=== PATIENT | male | born 1975 | race Caucasian/White ===

== ENCOUNTER 2023-01-07 15:43 | Emergency (ER) | payer OTHER, BC ==
[~2023-01-07] VITALS: Ht 160 cm; Wt 79.3 kg
[2023-01-07] MEDS ORDERED: SYNTHROID100 MCG PO (16:01)
[2023-01-07] MEDS ORDERED: CELECOXIB50 MG PO (16:01)
[2023-01-07] MEDS ORDERED: METHYLPREDNISOLO4 M1 PO (16:04)
[2023-01-07] MEDS ORDERED: CYCLOBENZAPRINE10 MG PO (16:04)
[2023-01-07 16:14] VITALS: BP 132/91
== END 2023-01-07 16:15 | disposition home or self-care (01) ==
LOC: ED 15:43
DX: M62.830 Muscle spasm of back (principal); M47.816 Spondylosis without myelopathy or radiculopathy, lumbar region
CPT/HCPCS: J1100; J1885

== ENCOUNTER 2023-04-15 07:55 | Day surgery (SDC) | payer OTHER ==
[2023-04-14 13:20] VITALS: BP 116/76
[~2023-04-15] VITALS: Ht 160 cm; Wt 77.3 kg
--- NOTE | ~2023-04-15 | OR ---
[facility] [address], [place] [address] Draft DATE OF OPERATION: 04/15/2023 SURGEON: Austen Pizarro MD PREOPERATIVE DIAGNOSIS: Nasal obstruction due to septal deformity and inferior turbinate hypertrophy. POSTOPERATIVE DIAGNOSIS: Nasal obstruction due to septal deformity and inferior turbinate hypertrophy. PROCEDURE: Septoplasty, cautery bilateral inferior turbinate and submucosal. ANESTHESIA: General LMA, EVELIA Saavedra. PREOPERATIVE HISTORY: Angelica is a 47-year-old male with nasal obstruction, difficulty with CPAP, unresponsive to appropriate medications. Exam in the office had shown a significant septal deformity and inferior turbinate hypertrophy. He was taken to the operating room for the above mentioned procedures. OPERATIVE PROCEDURE AND FINDINGS: After informed consent, the patient was taken to the operating room, placed in supine position where general LMA anesthesia was induced. The patient and procedure were verified. The patient received preoperative intranasal oxymetazoline and intravenous Ancef. Headlight speculum exam of the nasal cavity showed good decongestion of the inferior turbinates, septal deformity obstructive on the right side, a large spur and shelf extending posteriorly, 1% lidocaine with epinephrine was injected in the septal mucosa, right side. All deviated septal bone and cartilage was then removed with the Monet. The septum was medialized with the nasal speculum and the airway was markedly improved. The inferior turbinates were then cauterized with a long handle needle point cautery starting on the left side. Multiple transmucosal passes on the medial and inferior surface of the inferior turbinate extending anteriorly all the way back posteriorly. Excellent shrinkage of the inferior turbinate was obtained in this manner. Same procedure on the right inferior turbinate. Hemostasis was verified. PACU was then placed, one piece of Merocel each side trimmed, coated with Neosporin tied anteriorly over a pad. The pharynx was suctioned clear of blood and secretions. The patient was PATIENT NAME: ANGELICA GOEMZ OPERATIVE REPORT DATE OF : 79 REPORT #: [id number] PHYSICIAN: AUSTEN PIZARRO MD PCP: TERESA NUGENT REPORT IS CONFIDENTIAL AND NOT TO BE RELEASED WITHOUT AUTHORIZATION [facility] [address], [place] [address] Draft then awakened, extubated, transported to recovery room in good condition. COMPLICATIONS: None. BLOOD LOSS: Minimal. SPECIMEN: None. DRAINS: None. PACKING: One piece of Merocel in each nostril. Austen Pizarro MD GC/MODL /[id number] Copies: ~ PATIENT NAME: ANGELICA GOMEZ OPERATIVE REPORT DATE OF : 79 REPORT #: [id number] PHYSICIAN: AUSTEN PIZARRO MD PCP: TERESA NUGENT REPORT IS CONFIDENTIAL AND NOT TO BE RELEASED WITHOUT AUTHORIZATION
[~2023-04-15 07:55] MED LIST: CELECOXIB50 MG PO; CYCLOBENZAPRINE10 MG PO; EYE ITCH RELIEF5 ML; FLONASE ALLERG9.9 ML; METHYLPREDNISOLO4 M1 PO; OSTERA TABLET1 EACH PO; REFRESH CLASSI1 EACH OPTH; SYNTHROID100 MCG PO; TERIFLUNOMIDE PO
[2023-04-15 08:06] VITALS: BP 119/79
[2023-04-15] MEDS ORDERED: TERBUTALINE SULF5 MG PO (08:13)
[2023-04-15] MEDS ORDERED: TERBINAFINE HC250 MG PO (08:14)
--- NOTE | 2023-04-15 11:19 | NUR ---
04/15/23 Mikaela Steen OXYGEN SATURATION REMAINS 100% ON 6L VIA MASK. OXYGEN IS REMOVED. PATIENT ASKS "CAN I HAVE SOME WATER?" PATIENT IS GIVEN AN ICE CHIP.
[2023-04-15 11:54] VITALS: BP 110/71
--- NOTE | 2023-04-15 12:11 | NUR ---
LE 1150-PATIENT BACK TO ROOM FROM PACU ON RA. RECEIVED REPORT FROM NORIS. PATIENT IS DROWSY. RESP EVEN AND UNLABORED. RATES PAIN 5/10 AND THIS IS TOLERABLE. DENIES NAUSEA. SUCTION TURNED ON FOR PATIENT TO USE WHEN COUGHING. PROVIDED PATIENT WITH WATER AND APPLESAUCE. DRIP PAD CLEAN, DRY, AND INTACT. AT BEDSIDE. CALL LIGHT WITHIN REACH.
[2023-04-15 13:16] VITALS: BP 106/63
--- NOTE | 2023-04-15 13:30 | NUR ---
IN PT ROOM FOR ASSESSMENT AND VS. PT IS RESTING W/EYES CLOSED, EASILY AWAKENS TO VERBAL STIMULI. PT REPORTS PAIN HAS DECREASED FROM 7/10 TO 5/10 AND STATES THIS IS TOLERABLE AT THIS TIME A MILD "ACHE". NO EVIDENT NEW SHADOWING OR BLEEDING ON DRIP PAD. PT TOLERATING ICE WATER AND PUDDING W/OUT ANY DIFFICULTY SWALLOWING. PT REPORTS NO DESIRE TO URINE VOID AT THIS TIME. PT ENCOURAGED TO INTAKE ORAL FLUIDS, PT STATES VERBAL UNDERSTANDING. CALL LIGHT WITHIN REACH, NO FURTHER NEEDS AT THIS TIME.
--- NOTE | 2023-04-15 14:10 | NUR ---
ANSWERED PT CALL LIGHT D/T REPORT OF NEEDING TO VOID. PT STANDS AT BEDSIDE AND REPORTS NO DIZZINESS OR NAUSEA. STANDBY ASSIST W/PT TO BATHROOM, GAIT IS STEADY. PT URINE VOID 200 ML OF CLEAR/YELLOW URINE. PT BACK TO ROOM. PT EDUCATED ABOUT IMPORTANCE OF NOT BENDING OVER OR INCREASING HEAD PRESSURE AND INSTRUCTED TO GET DRESSED. IN ROOM TO ASSIST. CALL LIGHT WITHIN REACH, NO FURTHER NEEDS AT THIS TIME.
[2023-04-15 14:25] VITALS: BP 105/69
--- NOTE | 2023-04-15 14:35 | NUR ---
IN PT ROOM FOR DISCHARGE EDUCATION. PT AND PT STATE VERBAL UNDERSTANDING AND NO FURTHER QUESTIONS AT THIS TIME. GAUZE AND PAPER TAPE PROVIDED. VS TAKEN. PT OFF OF UNIT VIA WC TO PASSENGER SIDE OF 'S VEHICLE, STANDBY ASSIST. ALL BELONGINGS IN PT POSSESSION AT THIS TIME. PT AND PT STATE NO FURTHER NEEDS. PT ENCOURAGED TO SCHEDULE POST OP APPT FOR PACKING REMOVAL IN [place] ON FRIDAY AND DISCUSS USE OF NASAL CPAP MACHINE.
== END 2023-04-15 14:40 | disposition home or self-care (01) ==
LOC: DS 07:55
PROVIDERS: ATTEND Otolaryngology
PROC: 09BM0ZZ Excision of Nasal Septum, Open Approach (ICD-10-PCS; principal; 2023-04-15 10:00)
DX: J34.2 Deviated nasal septum (principal); J34.3 Hypertrophy of nasal turbinates; G47.33 Obstructive sleep apnea (adult) (pediatric); Z99.89 Dependence on other enabling machines and devices
CPT/HCPCS: A9270; J0131; J0690; J1100; J2001; J2405; J2704; J3010; J7121

== ENCOUNTER 2023-08-18 07:55 | Day surgery (SDC) | payer OTHER ==
[2023-08-14 08:34] VITALS: BP 118/75
[~2023-08-18] VITALS: Ht 160 cm; Wt 77.3 kg
[~2023-08-18 07:55] MED LIST changes: +ALLOPURINOL100 MG PO; +CEFAZOLIN SODIUM 2 GM/20 ML SYR IV SCH; +EFFEXOR XR75 MG PO; +IBLOOD GLUCOSE TEST STRIP 1 EA TEST VI PRN; +LACTATED RINGER'S 1,000 ML IV SCH; +LIDOCAINE HCL 1% 5 ML SDV INJ ONE; +TERBINAFINE HC250 MG PO; +TERBUTALINE SULF5 MG PO
[2023-08-18] MEDS ORDERED: HYDROmorphone HCL 1 MG/ML SYR IV PRN (08:15)
[2023-08-18] MEDS ORDERED: KETOROLAC TROMETHAMINE 15 MG/ML VIAL IV PRN (08:15)
[2023-08-18] MEDS ORDERED: ondansetron HCL 4 MG TAB PO PRN (08:15)
[2023-08-18] MEDS ORDERED: OXYCODONE/APAP 5/325 TAB PO PRN (08:15)
[2023-08-18] MEDS ORDERED: ondansetron HCL 4 MG/2 ML VIAL IV PRN ×2 (08:15→12:00)
[2023-08-18 08:18] VITALS: BP 111/78
[2023-08-18] MEDS ORDERED: fentaNYL citrate 100 MCG/2 ML VIAL ONE (09:20)
[2023-08-18] MEDS ORDERED: ROCURONIUM BROMIDE 50 MG/5 ML SYR ONE (09:21)
[2023-08-18] MEDS ORDERED: DEXAMETHASONE SOD PHOS 4 MG/ML VIAL ONE (09:21)
[2023-08-18] MEDS ORDERED: LIDOCAINE HCL 2% 5 ML SDV ONE ×2 (09:21→09:50)
[2023-08-18] MEDS ORDERED: ondansetron HCL 4 MG/2 ML VIAL ONE (09:21)
[2023-08-18] MEDS ORDERED: propofoL 200 MG/20 ML VIAL ONE (09:21)
[2023-08-18] MEDS ORDERED: dexmedeTOMIDine HCl 200 MCG/2 ML VIAL ONE (09:21)
[2023-08-18] MEDS ORDERED: iopamidoL 30 ML VIAL ONE ×2 (09:42→10:59)
[2023-08-18] MEDS ORDERED: SODIUM CHLORIDE 0.9% 40 ML IV ONE (09:50)
[2023-08-18] MEDS ORDERED: MIDAZOLAM HCL 2 MG/2 ML VIAL ONE (09:50)
[2023-08-18] MEDS ORDERED: KETAMINE in NS 50 MG/5 ML SYR ONE (09:50)
[2023-08-18] MEDS ORDERED: ACETAMINOPHEN 1,000 MG/100 ML VIAL ONE (09:50)
[2023-08-18] MEDS ORDERED: MAGNESIUM SULFATE 1 GM/2 ML VIAL ONE (09:53)
[2023-08-18] MEDS ORDERED: ePHEDrine sulfate 50 MG/ML AMP ONE (11:10)
[2023-08-18] MEDS ORDERED: SUGAMMADEX SODIUM 200 MG/2 ML ML ONE (11:55)
[2023-08-18] MEDS ORDERED: NALOXONE HCL 0.4 MG SYR IV PRN (12:00)
[2023-08-18] MEDS ORDERED: IBLOOD GLUCOSE TEST STRIP 1 EA TEST VI PRN (12:00)
[2023-08-18] MEDS ORDERED: fentaNYL citrate 50 MCG/ML SDV IV PRN (12:00)
[2023-08-18] MEDS ORDERED: KETOROLAC TROMETHAMINE 30 MG/ML VIAL IV PRN (12:00)
[2023-08-18] MEDS ORDERED: PHENAZOPYRIDINE HCL 95 MG TAB PO ONE (12:15)
[2023-08-18] MEDS ORDERED: oxyBUTYnin chloride 5 MG TAB PO ONE (12:15)
--- NOTE | 2023-08-18 12:21 | NUR ---
08/18/23 1220 Sheets,Sarah 1204 PT ARRIVED TO PACU RESP EVEN AND UNLABORED BUT SHALLOW AND DECREASED RATE. PT WAKES TO TACTILE STIMULI AND IS ENCOURAGED TO DEEP BREATHE OFF AND ON, PT ABLE TO DO SO AND EASILY FALLS BACK TO SLEEP. 1216 RN CONTINUES TO WAKE PT OFF AND ON AND ENOCOURAGE DEEP BREATHING. O2 SAT REMAINS MID 90S. SMALL AMOUNT OF SNORING NOTED OFF AND ON.
[2023-08-18 12:49] VITALS: BP 103/73
--- NOTE | 2023-08-18 12:52 | NUR ---
PATIENT BACK IN DAY SURGERY ROOM FROM PACU. DROWSY. AWAKENS EASILY TO VOICE. UNABLE TO STAY AWAKE. IV SITE WNL. SMALL AMOUNT OF BLOOD AT END OF PENIS. VS CHECKED. SCDs ON. AT BEDSIDE. CALL LIGHT WITHIN REACH.
[2023-08-18 14:20] VITALS: BP 103/67
--- NOTE | 2023-08-18 14:42 | NUR ---
1335: PATIENT REQUESTS TO GET UP TO USE BATHROOM. FEELS CONTINUOUS URGE TO HAVE BOWEL MOVEMENT. IV SALINE LOCKED. PATIENT ASSISTED TO SIT ON BED AND THEN STAND. GAIT STEADY WALKING IN TO BATHROOM. PATIENT GIVEN URINAL TO VOID IN TO. IN BATHROOM WITH PATIENT. 1355: PATIENT GIVEN NEW GOWN AND WIPES. IN BATHROOM WITH PATIENT. 1415: PATIENT BACK IN BED. VOID PER URINAL APPROXIMATELY 100 ML. UNABLE TO HAVE BOWEL MOVEMENT. VS CHECKED. GIVEN APPLE SAUCE. AT BEDSIDE. CALL LIGHT WITHIN REACH. RATES PAIN 10/17. 1430: PATIENT TOLERATED APPLESAUCE. MEDICATED FOR PAIN WITH 1 TAB OF PERCOCET. CALL LIGHT WITHIN REACH. PATIENT RESTING IN PAIN.
[2023-08-18 16:54] VITALS: BP 91/54
--- NOTE | 2023-08-18 16:54 | NUR ---
1646: PATIENT AWAKENED FOR DISCHARGE INSTRUCTIONS. UPON AWAKENING PATIENT C/O 10/10 PAIN AND CONTINUED NAUSEA. MEDICATED FOR PAIN WITH 0.5 MG OF DILAUDID. DISCHARGE INSTRUCTIONS GIVEN TO . LEFT TO GET PRESCRIPTION FILLED. CALL LIGHT WITHIN REACH.
--- NOTE | 2023-08-18 16:56 | NUR ---
SWATHI 6633 TAKING OVER CARE FOR VINAY HAAS. PATIENT LAYING IN BED AT THIS TIME. PATIENT GIVEN PAIN MEDICINE PER EMAR. PATIENT TO GO GET PERSCRIPTION DROPPED OFF. WATER AND CRACKERS GIVEN. CALL LIGHT WITHIN REACH NO FUTHER NEEDS. NO QUESTIONS AT THIS TIME.
[2023-08-18] MEDS ORDERED: KETOROLAC TROMETHAMINE 30 MG/ML VIAL IV ONE (17:15)
[2023-08-18] MEDS ORDERED: OXYCODONE/APAP 5/325 TAB PO ONE (17:15)
--- NOTE | 2023-08-18 17:18 | NUR ---
IN PT ROOM TO ANSWER CALL LIGHT. PT STANDING AT END OF BED AND STATES "WHATEVER YOU JUST GAVE ME HELPED A LOT", PT STATES HIS PAIN AT THIS TIME IS REDUCED TO 7/10 IN LOWER BACK AND STATES THIS IS TOLERABLE AT THIS TIME. PT STATES HE DID A LOT OF YARD WORK AND A PHYSICAL TEST YESTERDAY AND FEELS PAIN IN HIS LOWER BACK AND KNEES. PT STATES HE IS READY TO GO HOME. 30 MG OF TORADOL GIVEN BY ROCIO MCLEAN, IV DC'ED BY ROCIO MCLEAN. PT GOES TO BATHROOM X1 W/STANDBY RN ASSIST. PT OFF OF UNIT VIA WC TO PASSENGER SIDE OF 'S VEHICLE. PT REPORTS NO FURTHER QUESTIONS OR NEEDS AT THIS TIME. ALL BELONGINGS IN PT POSSESSION.
[2023-08-19] MEDS ORDERED: DILAUDID2 MG PO (23:41)
[2023-08-19] MEDS ORDERED: COLACE100 MG PO (23:41)
[2023-08-21 19:53] LABS: CALCULI MASS 83 mg (())
== END 2023-08-18 17:20 | disposition home or self-care (01) ==
LOC: DS 07:55 → OPS 07:55 → DS 09:00 → OPS 10:10 → DS 10:10 → OPS 17:20
PROVIDERS: ATTEND Urology
PROC: BT14ZZZ Fluoroscopy of Kidneys, Ureters and Bladder (ICD-10-PCS; 2023-08-18)
PROC: 0TC18ZZ Extirpation of Matter from Left Kidney, Via Natural or Artificial Opening Endoscopic (ICD-10-PCS; principal; 2023-08-18 10:10)
PROC: 0TC08ZZ Extirpation of Matter from Right Kidney, Via Natural or Artificial Opening Endoscopic (ICD-10-PCS; 2023-08-18 10:10)
DX: N20.0 Calculus of kidney (principal); N32.89 Other specified disorders of bladder; E03.9 Hypothyroidism, unspecified
CPT/HCPCS: 00910; 74420; 82365; C1758; C1769; C2617; J0131; J0690; J1100; J1170; J1885; J2001; J2250; J2405; J2704; J3010; J3475; J3490; J7121; Q9967

== ENCOUNTER 2023-08-19 21:01 | Emergency (ER) | payer OTHER ==
[~2023-08-19] VITALS: Ht 160 cm; Wt 78.0 kg
[~2023-08-19 21:01] MED LIST changes: -CEFAZOLIN SODIUM 2 GM/20 ML SYR IV SCH; -IBLOOD GLUCOSE TEST STRIP 1 EA TEST VI PRN; -LACTATED RINGER'S 1,000 ML IV SCH; -LIDOCAINE HCL 1% 5 ML SDV INJ ONE
[2023-08-19] MEDS ORDERED: HYDROmorphone HCL 1 MG/ML SYR IV ONE (22:15)
[2023-08-19 22:27] LABS: BASOPHILS 0.1 % (0-2); EOSINOPHILS 0.2 % (0-6); HEMATOCRIT 38.3 % (35.0-50.0); HEMOGLOBIN 13.5 g/dL (12.0-18.0); LYMPHOCYTES 9.3 % (24-44); MCH 29.9 (27-36); MCHC 35.2 g/dl (30-36); MONOCYTES 7.8 % (0-12); NEUTROPHILS 82.6 % (39-80); PLATELET COUNT 247 K/uL (140-440); RBC 4.51 M/ul (4.3-5.7); RDW 13.7 (10.5-15.0)
[2023-08-19 23:32] LABS: ALBUMIN 3.5 g/dL (3.4-5.0); ALBUMIN/GLOBULIN RATIO 1.21 (1.1-2.4); ANION GAP 12.1 (7-21); BILIRUBIN, TOTAL 0.6 ng/dL (0.2-1.0); BUN/CREATININE RATIO 14.67 (6.0-28.6); CALCIUM 8.3 mg/dL (8.5-10.1); CREATININE, SERUM 1.09 mg/dL (0.70-1.30); POTASSIUM 4.1 mmol/L (3.5-5.1); PROTEIN, TOTAL 6.4 g/dL (6.4-8.2)
[2023-08-19] MEDS ORDERED: DILAUDID2 MG PO (23:41)
[2023-08-19] MEDS ORDERED: COLACE100 MG PO (23:41)
[2023-08-19] MEDS ORDERED: HYDROmorphone HCL 2 MG HOME.PACK PO ONE (23:45)
[2023-08-19 23:58] VITALS: BP 112/80
== END 2023-08-20 00:05 | disposition home or self-care (01) ==
LOC: ED 21:01
PROVIDERS: Family Medicine
DX: N23 Unspecified renal colic (principal); E03.9 Hypothyroidism, unspecified; Z96.0 Presence of urogenital implants; Z79.890 Hormone replacement therapy; Z79.899 Other long term (current) drug therapy
CPT/HCPCS: 36415; 74018; 80053; 85025; J1170

== ENCOUNTER → 2023-09-04 | Day surgery (SDC) | payer OTHER ==
[~2023-09-04] MED LIST changes: +COLACE100 MG PO; +DILAUDID2 MG PO; +LIDOCAINE 2% VISCOUS 11 ML SYR ONE; +OXYBUTYNIN CHLOR5 M1 PO
[2023-09-04 06:55] LABS: BILIRUBIN, URINE NEGATIVE (negative); BLOOD/HGB, URINE MODERATE (Negative); KETONE, URINE NEGATIVE (Negative); LEUK ESTERASE, URINE SMALL (negative); NITRITE, URINE NEGATIVE (negative)
[2023-09-04 07:04] LABS: BACTERIA, URINE NONE SEEN /hpf (negative); CASTS, URINE NONE SEEN \\lpf; COLLECTION TYPE, URINE CLEAN CATCH; CRYSTALS, URINE NONE SEEN (0-1+); EPITHELIAL CELLS, URINE 0 /lpf (0-1+); REFLEX CULTURE, URINE No (No)
== END ==
LOC: OPS 06:42 → DS 07:30
PROVIDERS: ATTEND Urology
PROC: 0TP98DZ Removal of Intraluminal Device from Ureter, Via Natural or Artificial Opening Endoscopic (ICD-10-PCS; principal; 2023-09-04 07:30)
DX: Z46.6 Encounter for fitting and adjustment of urinary device (principal); E03.9 Hypothyroidism, unspecified; Z79.899 Other long term (current) drug therapy
CPT/HCPCS: 52224; 81001; J3490

== ENCOUNTER 2024-05-04 08:28 | Day surgery (SDC) | payer BC, OTHER ==
[~2024-05-04] VITALS: Ht 160 cm; Wt 82.1 kg
[~2024-05-04 08:28] MED LIST changes: +IBLOOD GLUCOSE TEST STRIP 1 EA TEST VI PRN; +LACTATED RINGER'S 1,000 ML IV SCH; -LIDOCAINE 2% VISCOUS 11 ML SYR ONE; +LIDOCAINE HCL 1% 5 ML SDV INJ ONE; +MIDAZOLAM HCL 5 MG/5 ML VIAL IV PRN; -OSTERA TABLET1 EACH PO; +VITAMIN D325 MC4 PO; +fentaNYL citrate 100 MCG/2 ML VIAL IV PRN
[2024-05-04] MEDS ORDERED: MIDAZOLAM HCL 5 MG/5 ML VIAL ONE (08:51)
[2024-05-04] MEDS ORDERED: fentaNYL citrate 100 MCG/2 ML VIAL ONE (08:51)
[2024-05-04 08:53] VITALS: BP 125/73
[2024-05-04] MEDS ORDERED: SERTRALINE HCL100 MG PO (08:56)
--- NOTE | 2024-05-04 09:44 | NUR ---
05/04/24 0944 Mikaela Anaya OXYGEN SATURATION REMAINS 99% ON 5L VIA NC. OXYGEN IS REDUCED TO 4L VIA NC. SNORING RESPIRATIONS HEARD. PATIENT'S HEAD IS TURNED TO THE RIGHT SIDE IN AN ATTEMPT TO OPEN HIS AIRWAY.
[2024-05-04 10:15] VITALS: BP 111/80
--- NOTE | 2024-05-05 08:43 | OR ---
[facility] [address], [place] [address] Signed DATE OF OPERATION: 05/04/2024 SURGEON: Camilo Matson MD PREOPERATIVE DIAGNOSES: 1. Epigastric abdominal pain. 2. Possible irritable bowel syndrome. POSTOPERATIVE DIAGNOSIS: Unremarkable upper endoscopy. PROCEDURES: EGD with CLOtest and biopsies of the duodenum, pyloric bulb and antrum. ESTIMATED BLOOD LOSS: None. INDICATIONS: Angelica is a 48-year-old gentleman, asked to see me for upper endoscopy. 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 He is quite certain that he has PTSD. He said he has trouble with epigastric abdominal pain when he goes to bed. He tries to eat about 3 hours before he goes to bed. He said he is also having some trouble urinating and defecating which he attributes to being in the [place]. He said he probably has irritable bowel syndrome. Recently he had trouble with kidney stones, he said that was awful. He tried omeprazole for a couple weeks and said maybe it helped, but then he discontinued the medication. He said he only uses diclofenac as needed. In the office, I gave him our brochure on upper endoscopy. We reviewed the nature of the test. There is risk including, but not limited to gas bloating, crampy abdominal pain, bleeding, perforation requiring surgery, and missed diagnosis. We also reviewed the need for IV sedation. He understands an adult person has to take him home afterwards. He had expressed understanding and wished to proceed. DESCRIPTION OF PROCEDURE: Angelica was taken into our endoscopy suite and placed in a supine semi-recumbent position. Overall he did well, but he was a little anxious. The posterior oropharynx was anesthetized with lidocaine spray. A bite block was utilized for the case. The adult gastroscope was introduced and advanced under direct visualization of the camera without difficulty. He took a total of 5 mg of Versed and 100 mcg of fentanyl for the case. The duodenum and pyloric channel were unremarkable. We went ahead and took biopsies Electronically Signed By: CAMILO MATSON MD 05/05/24 0843 PATIENT NAME: ANGELICA GOMEZ OPERATIVE REPORT DATE OF : 79 REPORT #: [id number] PHYSICIAN: CAMILO MATSON MD PCP: TERESA NUGENT REPORT IS CONFIDENTIAL AND NOT TO BE RELEASED WITHOUT AUTHORIZATION [facility] [address], [place] [address] Signed from the duodenum, pyloric channel because of his epigastric symptoms including this idea of irritable bowel syndrome and frequent loose stools. There were no ulcerations. The antrum, incisura body and fundus of the stomach seemed to be unremarkable. We taken a biopsy of the antrum for CLOtest as well as pathologic review. Upon retroflexion of the scope, I really cannot appreciate an obvious hiatal hernia. The scope was withdrawn up through the area of the GE junction, which was compliant without stricture. He may have had just a little irritation in the distal esophagus. His GE junction is about 33 cm from his incisors. The distal middle and upper esophagus were unremarkable. After this, the gas was suctioned out and the gastroscope removed. Angelica tolerated the procedure quite well. RECOMMENDATIONS: I will see Angelica back in my office in 7 to 14 days to review his results. He indeed may have irritable bowel syndrome associated with his PTSD. Camilo Matson MD ALB/MODL /[id number] cc: [facility] Camilo Matson MD Copies: CAMILO MATSON MD ~ Electronically Signed By: CAMILO MATSON MD 05/05/24 0843 PATIENT NAME: ANGELICA GOMEZ OPERATIVE REPORT DATE OF : 79 REPORT #: [id number] PHYSICIAN: CAMILO MATSON MD PCP: TERESA NUGENT REPORT IS CONFIDENTIAL AND NOT TO BE RELEASED WITHOUT AUTHORIZATION
--- NOTE | 2024-05-06 17:06 | PATH ---
[facility] [address], [place] [address] Signed SPECIMEN(S): A DUODENAL BIOPSY SPECIMEN(S): B DUODENAL BULB BIOPSY SPECIMEN(S): C ANTRUM BIOPSY SPECIMEN SOURCE: A. DUODENAL BIOPSY B. DUODENAL BULB BIOPSY C. ANTRUM BIOPSY CLINICAL HISTORY: Epigastric pain, diarrhea. FINAL PATHOLOGIC DIAGNOSIS: A. Duodenal biopsy: - Benign duodenal mucosa, negative for specific diagnostic abnormality. B. Duodenal bulb biopsy: - Benign duodenal mucosa, negative for specific diagnostic abnormality. C. Antrum biopsy: - Benign gastric mucosa with focal slight chronic inflammation. - Negative for evidence of Helicobacter organisms on routine HE-stained sections. JVR:adelaida MICROSCOPIC EXAMINATION: Histologic sections of all submitted blocks are examined by light microscopy. These findings, together with the gross examination, support the pathologic diagnosis. GROSS DESCRIPTION: A. The specimen, labeled and designated "Gomez, duodenum biopsy," is received in formalin and consists of one pearce soft tissue fragment, 0.4 cm. Entirely submitted in (A1). B. The specimen, labeled and designated "Gomez, duodenum bulb biopsy," is received in formalin and consists of one pearce soft tissue fragment, 0.3 cm. Entirely submitted in (B1). C. The specimen, labeled and designated "Gomez, antrum biopsy," is received in formalin and consists of one pearce soft tissue fragment, 0.2 cm. Entirely submitted in (C1). JS (under the direct supervision of a pathologist) The Gross Description was prepared using a voice recognition system. The report was reviewed for accuracy; however, sound-alike word errors, addition and/or PATIENT NAME: ANGELICA GOMEZ PATHOLOGY DATE OF : 79 REPORT #: [id number] PHYSICIAN: GHISLAINE SAHNI PCP: TERESA NUGENT REPORT IS CONFIDENTIAL AND NOT TO BE RELEASED WITHOUT AUTHORIZATION [facility] [address] [facility] [place], [place] [address] Signed deletions may occur. If there is any question about this report, please contact Client Services. PERFORMING LABORATORY: Technical component was performed by [facility], [address] [place] [address] (CLIA# [id number]). Professional interpretation was performed by [facility] - [address] [address] (CLIA#: [id number]). Diagnostician: Singh Boo MD Pathologist Electronically Signed 05/06/2024 Copies: ~ PATIENT NAME: ANGELICA GOMEZ PATHOLOGY DATE OF : 79 REPORT #: [id number] PHYSICIAN: GHISLAINE SAHNI PCP: TERESA NUGENT REPORT IS CONFIDENTIAL AND NOT TO BE RELEASED WITHOUT AUTHORIZATION
== END 2024-05-04 10:26 | disposition home or self-care (01) ==
LOC: DS 08:28
PROVIDERS: ATTEND Colon & Rectal Surgery
PROC: 0DB68ZX Excision of Stomach, Via Natural or Artificial Opening Endoscopic, Diagnostic (ICD-10-PCS; 2024-05-04)
PROC: 0DB98ZX Excision of Duodenum, Via Natural or Artificial Opening Endoscopic, Diagnostic (ICD-10-PCS; principal; 2024-05-04 09:45)
DX: K29.50 Unspecified chronic gastritis without bleeding (principal); R10.13 Epigastric pain; E03.9 Hypothyroidism, unspecified; E79.0 Hyperuricemia without signs of inflammatory arthritis and tophaceous disease; Z79.899 Other long term (current) drug therapy
CPT/HCPCS: 36415; 87077; 88305; G0500; J2250; J3010; J7121